=== PATIENT | female | born 1965 | race Hispanic/Latino ===

== ENCOUNTER 2025-01-02 06:48 | Observation (INO) | payer OTHER ==
[2025-01-01 10:30] LABS: BASOPHILS % 0.2 % (0.0-1.0); EOSINOPHILS # (AUTO) 0.1 (0.0-0.4); EOSINOPHILS % 0.6 % (0.0-6.0); HEMATOCRIT 37.3 % (34.2-44.1); LYMPHOCYTES # (AUTO) 2.2 (1.0-3.2); LYMPHOCYTES % 22.9 % (18.0-39.1); MEAN CORPUSCULAR HEMOGLOBIN 32.3 pg (28-32); MEAN CORPUSCULAR HGB CONC 32.2 g/dL (31-35); MEAN CORPUSCULAR VOLUME 100.5 fL (81-99); MONOCYTES # (AUTO) 0.4 (0.2-0.8); MONOCYTES % 4.7 % (4.4-11.3); NEUTROPHILS # (AUTO) 6.7 (2.1-6.9); NEUTROPHILS % 71.4 % (38.7-80.0); PLATELET COUNT 305 x10e3/uL (140-360); RED BLOOD COUNT 3.71 x10e6/uL (3.6-5.1); RED CELL DISTRIBUTION WIDTH 13.2 % (11.7-14.4); WHITE BLOOD COUNT 9.44 x10e3/uL (4.8-10.8)
[2025-01-01 11:51] LABS: ANION GAP 14.3 mmol/L (8-16); CALCIUM 9.2 mg/dL (8.4-10.2); CREATININE, SERUM 0.69 mg/dL (0.57-1.11)
[2025-01-01 11:58] LABS: POTASSIUM 3.3 mmol/L (3.5-5.1)
[~2025-01-02] VITALS: Ht 157.5 cm; Wt 81.6 kg
[~2025-01-02 06:48] MED LIST: ATORVASTATIN CA10 MG PO; METFORMIN HCL500 MG PO; TELMISARTAN-HC1 EAC1 PO; VITAMIN D250 MCG PEG
[2025-01-02] MEDS: CEFAZOLIN SODIUM 2 GM ONE (07:54)
[2025-01-02] MEDS: CELECOXIB 200 MG CAP ONE (07:55)
[2025-01-02] MEDS: LACTATED RINGER'S 1,000 ML ONE (07:55)
[2025-01-02] MEDS: GABAPENTIN 300 MG CAP ONE (07:56)
[2025-01-02] MEDS: DEXTROSE 5% 250ML 250 ML IV ONE (07:57)
[2025-01-02] MEDS ORDERED: LIDOCAINE HCL 2% LOCAL INJ 5 ML SDV VIAL INJ ONE (09:38)
[2025-01-02] MEDS ORDERED: PROPOFOL IV EMULSION 10 MG/ML 20 ML VIAL ONE (09:38)
[2025-01-02] MEDS ORDERED: ONDANSETRON HCL INJ 2MG/ML 2ML 2 MG/ML VIAL ONE (09:38)
[2025-01-02] MEDS ORDERED: SODIUM CHLORIDE 0.9% 100 ML ONE (09:40)
[2025-01-02] MEDS ORDERED: MIDAZOLAM HCL 2 MG/2 ML VIAL ONE (09:45)
[2025-01-02] MEDS ORDERED: FENTANYL CITRATE/PF 100MCG/2 ML INJ ONE (09:45)
[2025-01-02] MEDS ORDERED: SEVOFLURANE INHAL SOLN 250 ML PEN BTL ONE (09:58)
[2025-01-02] MEDS ORDERED: METOCLOPRAMIDE HCL 10 MG/2ML VIAL ONE (10:16)
[2025-01-02] MEDS ORDERED: EPHEDRINE SULFATE INJ 50 MG/ML VIAL ONE (11:07)
[2025-01-02] MEDS ORDERED: HYDROCODONE/APAP 7.5MG-325MG 1 EA TAB PO PRN (11:30)
[2025-01-02] MEDS ORDERED: DOCUSATE SODIUM 100 MG CAP PO PRN (11:30)
[2025-01-02] MEDS ORDERED: DIPHENHYDRAMINE HCL INJ 50 MG/ML VIAL IV PRN (11:30)
[2025-01-02] MEDS: SODIUM CHLORIDE 0.9% 1000ML 1,000 ML IV SCH (11:30)
[2025-01-02] MEDS: ONDANSETRON HCL INJ 2MG/ML 2ML 2 MG/ML VIAL IV PRN (13:30)
[2025-01-02] MEDS ORDERED: TRANEXAMIC ACID 1,000 MG/10 ML ML ONE (13:36)
[2025-01-02] MEDS: METOCLOPRAMIDE HCL 10 MG/2ML VIAL IV ONE (16:10)
[2025-01-02] MEDS ORDERED: ASPIRIN81 MG PO (16:39)
[2025-01-02] MEDS: ROPIVACAINE/EPI/CLONIDINE/KET 50 ML SYRINGE INJ ONE (17:41)
[2025-01-02 18:03] VITALS: BP 95/78; PULSE 68; RESP 18; TEMP 96.9; O2SAT 97
[2025-01-02] MEDS: METOCLOPRAMIDE HCL 10 MG/2ML VIAL ONE (19:42)
[2025-01-02 20:00] VITALS: BP 92/59; PULSE 71; RESP 18; TEMP 97.9; O2SAT 97
[2025-01-02] MEDS: CELECOXIB 100 MG CAP PO SCH (20:29)
[2025-01-02] MEDS: ASPIRIN 325 MG TAB PO SCH (20:30)
[2025-01-02 20:57] VITALS: PULSE 63; RESP 17; O2SAT 94
[2025-01-03 04:00] VITALS: BP 96/59; PULSE 57; RESP 18; TEMP 98.2; O2SAT 100
[2025-01-03 05:33] LABS: HEMOGLOBIN 10.2 g/dL (12.0-16.0)
[2025-01-03 07:09] LABS: ANION GAP 12.7 mmol/L (8-16); CALCIUM 8.1 mg/dL (8.4-10.2); CREATININE, SERUM 0.6 mg/dL (0.57-1.11); POTASSIUM 3.7 mmol/L (3.5-5.1)
[2025-01-03 08:00] VITALS: BP 97/55; PULSE 62; PULSE 72; RESP 17; RESP 18; TEMP 98.7; O2SAT 100; O2SAT 94
[2025-01-03] MEDS: HYDROCODONE/APAP 5MG-325MG TAB PO PRN (09:15)
[2025-01-03 11:48] VITALS: BP 97/59; PULSE 61; RESP 18; TEMP 98.5; O2SAT 99
[2025-01-03] MEDS ORDERED: ONDANSETRON HCL 4 MG ORAL DISINTEGRATING TAB PO PRN (14:00)
[2025-01-03] MEDS: ACETAMINOPHEN 1000 MG/100 ML IV PRN (14:42)
== END 2025-01-03 16:30 | disposition home health service (06) ==
LOC: OR 06:48 → PACU V 11:19 → MED/SURG 17:00
PROVIDERS: ADMIT Specialist; ATTEND Specialist
DX: M17.11 Unilateral primary osteoarthritis, right knee (principal); E11.9 Type 2 diabetes mellitus without complications; I10 Essential (primary) hypertension; E78.5 Hyperlipidemia, unspecified; E66.9 Obesity, unspecified; R00.1 Bradycardia, unspecified; Z01.810 Encounter for preprocedural cardiovascular examination; Z01.812 Encounter for preprocedural laboratory examination; Z01.818 Encounter for other preprocedural examination; Z79.84 Long term (current) use of oral hypoglycemic drugs; Z79.899 Other long term (current) drug therapy; Z68.36 Body mass index [BMI] 36.0-36.9, adult; Z86.73 Personal history of transient ischemic attack (TIA), and cerebral infarction without residual deficits
CPT/HCPCS: 27447; 36415 ×3; 71046; 73560; 80048 ×2; 82948 ×2; 85014; 85018; 85025; 86850; 86900; 93005; 94799 ×2; 97110; 97116; 97161; 97530 ×3; C1713 ×2; C1776 ×2; G0378 ×2; J0131; J0690 ×2; J2003; J2250; J2405; J2704; J2765; J3010; J7030 ×2; J7050; J7121